=== PATIENT | female | born 1965 | race Caucasian/White ===

== ENCOUNTER 2016-08-17 19:08 | Emergency (ER) | payer OTHER ==
[2016-08-17 19:16] VITALS: BP 155/87
== END 2016-08-17 19:59 | disposition home or self-care (01) ==
LOC: ED 19:08
DX: S43.402A Unspecified sprain of left shoulder joint, initial encounter (principal); S46.912A Strain of unspecified muscle, fascia and tendon at shoulder and upper arm level, left arm, initial encounter; I10 Essential (primary) hypertension; X58.XXXA Exposure to other specified factors, initial encounter; Y93.89 Activity, other specified; Y99.8 Other external cause status; Y92.89 Other specified places as the place of occurrence of the external cause